=== PATIENT | female | born 1995 | race Caucasian/White ===

== ENCOUNTER 2022-08-23 12:27 | Emergency (ER) | payer BC ==
[2022-08-23 12:36] VITALS: BP 109/72; PULSE 56; RESP 26; TEMP 97.7; BMI 23.4
[2022-08-23 14:35] LABS: PH,URINE 7.5 (5.0-8.0); URINE APPEARANCE CLEAR; URINE BILIRUBIN NEGATIVE (NEGATIVE); URINE COLOR YELLOW; URINE GLUCOSE (UA) NEGATIVE (NEGATIVE); URINE KETONE 1+ (NEGATIVE); URINE LEUK ESTERASE NEGATIVE (NEGATIVE); URINE NITRITE NEGATIVE (NEGATIVE); URINE PROTEIN NEGATIVE (NEGATIVE); URINE UROBILINOGEN 0.2 mg/dL (0.2-1.0)
== END 2022-08-23 14:41 | disposition home or self-care (01) ==
LOC: JER 12:27
DX: R55 Syncope and collapse (principal); R42 Dizziness and giddiness; R11.0 Nausea; R20.2 Paresthesia of skin; R10.84 Generalized abdominal pain; Z53.21 Procedure and treatment not carried out due to patient leaving prior to being seen by health care provider
CPT/HCPCS: 81003; 84703; 87086; 93005; 93010; 99284-25